=== PATIENT | male | born 1950 | race Caucasian/White ===

== ENCOUNTER → 2016-05-24 | Outpatient (CLI) | payer MEDICAID ==
--- NOTE | 2016-05-25 11:13 | EST ---
DATE OF SERVICE: 05/24/2016 AGE: 65Y SEX: M HT: 69" WT: 268 lbs. Protocol Deni: X Other: Stress Stage: II Dur. of Exercise: 6:00 *Heart Rate Blood Pressure *Rest: 76 Rest: 170/91 * *Max. Achieved: 141 Maximum BP: 213/68 85% PMHR: 133 100% PMHR: 156 *METS: 7.1 INDICATIONS: Chest pain. MEDICATIONS: Advair, Atenolol, lansoprazole, atorvastatin, Cialis, vitamins. STRESS DATA: Pretesting physical examination showed the heart rate of 76, pressure is 170/91 mmHg. Baseline EKG shows sinus mechanism. The patient exercised on the treadmill according to Deni protocol for a total of 6 minutes and achieved 7.1 METS. The max heart rate was 141, which is about 90% of maximum predicted heart rate. Maximum blood pressure was 213/68 mmHg. Clinically, the patient did not have any symptoms of chest pain or discomfort and the EKG did not show any significant ST or T-wave abnormalities consistent with ischemia. CONCLUSION: 1. Good exercise capacity. 2. Normal EKG in response to exercise. 3. Normal stress test for this patient.
== END | disposition home or self-care (01) ==
LOC: RADNMMAIN 10:36
PROVIDERS: ATTEND Family Medicine
DX: R06.02 Shortness of breath (principal); R07.9 Chest pain, unspecified
CPT/HCPCS: 93017

== ENCOUNTER → 2016-12-06 | Outpatient (CLI) | payer MEDICAID ==
--- NOTE | 2016-12-06 08:25 | CT ---
EXAMINATION TYPE: CT sinus wo con DATE OF EXAM: 12/06/2016 COMPARISON: NONE HISTORY: Chronic sinusitis CT DLP: 532.50 mGycm. Automated Exposure Control for Dose Reduction was Utilized. TECHNIQUE: CT scan of the sinuses is performed without contrast, axial images are obtained, coronal r eformatted images are also reviewed. FINDINGS: Lobular soft tissue is present in the bilateral maxillary sinuses. No air-fluid levels. The orbits show symmetric appearance. Ostiomeatal units are patent. Postop change noted in the lateral r ight orbit. Deviated nasal septum towards the left is noted. Slight irregularity to the inferior wall the right orbit is likely due to remote trauma. Old fracture suspected of the right zygoma. IMPRESSION: Findings may represent polyp disease.
== END | disposition home or self-care (01) ==
LOC: RADCTMAIN 07:48
PROVIDERS: ATTEND Family Medicine
DX: J32.4 Chronic pansinusitis (principal)
CPT/HCPCS: 70486

== ENCOUNTER → 2017-10-11 | Outpatient (CLI) | payer MEDICAID ==
--- NOTE | 2017-10-11 16:09 | XR ---
Right shoulder HISTORY: Right shoulder pain 3 views of the right shoulder Arthropathy is present at the acromioclavicular joint. Right lung apex as visualized is normal. Bone mineralization, alignment are maintained at the right shoulder. There is joint space loss at the franca ohumeral joint. Difficult to exclude a distal acromial spur. IMPRESSION: Correlate for possible impingement. Joint space loss is present in the right shoulder, sh oulder MRI may be of benefit.
== END | disposition home or self-care (01) ==
LOC: RADXRYALE 15:00
PROVIDERS: ATTEND Physician Assistant Medical
DX: M79.89 Other specified soft tissue disorders (principal)

== ENCOUNTER → 2018-05-30 | Outpatient (CLI) | payer MEDICAID ==
--- NOTE | 2018-05-30 22:27 | MR ---
EXAMINATION TYPE: MR shoulder RT wo con DATE OF EXAM: 05/30/2018 COMPARISON: HISTORY: Pain R shoulder TECHNIQUE: Multiplanar, multisequence imaging of the shoulder is performed without contrast. FINDINGS: Rotator Cuff: There is increased signal through the distal supraspinatus tendon. There appears to be approximately 1.1 cm of retraction. The distal portion of the tendon is just distal to the acromion. No supraspinatus muscle atrophy or retraction is evident. Remaining rotator cuff tendons appear intac t Acromioclavicular Joint: Hypertrophy. Some downward sloping is present which can contribute to imping ement syndrome. Glenohumeral Joint: Humerus aligns normally with the glenoid. Spurring is present compatible with ost eoarthritic degenerative change. There is thinning of the articular cartilage. Labrum: There is increased signal within the glenoid suspicious for superior SLAP lesion. Biceps Tendon: The long head of biceps is in normal location within bicipital groove. Small amount of fluid is within the bicipital groove. Bone marrow signal: No focal abnormal marrow signal is appreciated. Other: No additional significant abnormality is appreciated. IMPRESSION: 1. Supraspinatus tendon tear with approximately 1 cm of retraction. No muscle atrophy is evident. 2. Moderate tendinosis of the supraspinatus tendon. Mild joint effusion is present. 3. 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 4. Acromioclavicular joint hypertrophy. 5. Suspected glenoid labral tear.
== END | disposition home or self-care (01) ==
LOC: RADMRIMAIN 10:18
PROVIDERS: ATTEND Family Medicine
DX: M19.011 Primary osteoarthritis, right shoulder (principal); M75.101 Unspecified rotator cuff tear or rupture of right shoulder, not specified as traumatic

== ENCOUNTER → 2018-06-06 | Outpatient (CLI) | payer MEDICAID ==
--- NOTE | 2018-06-06 14:15 | EST ---
EXERCISE STRESS AGE: 67 SEX: M HT: 70" WT: 124 PROTOCOL: Deni Stress Test STAGE: 3 DURATION OF EXERCISE: 7:15 HEART RATE REST: 54 BLOOD PRESSURE REST: 129/93 MAXIMUM HEART RATE ACHIEVED: 135 MAXIMUM BLOOD PRESSURE: 206/74 85% MPHR: 131 100% MPHR: 154 METS: 8.5 INDICATIONS: Hypertension/chest pain. CLINICAL INFORMATION: STRESS DATA: Pretesting physical examination showed a heart rate of 54, pressure is 129/93 mmHg. Baseline EKG showed sinus mechanism. The patient exercised on the treadmill according to Deni protocol for a total of 7 minutes and achieved 8.5 METs. Max heart rate was 135, which is about 87% of maximum predicted heart rate. Maximum blood pressure was was 206/74 mmHg. Clinically, the patient did not have any symptoms of chest pain or discomfort. The EKG showed about [address]-segment depression. CONCLUSION: 1. Good exercise tolerance. 2. Abnormal EKG in response to exercise with evidence of [address]-segment depression at the peak of the exercise period. MMSHON / NANCIN: [id number] /
== END | disposition home or self-care (01) ==
LOC: RADNMMAIN 08:50
PROVIDERS: ATTEND Family Medicine
DX: R94.31 Abnormal electrocardiogram [ECG] [EKG] (principal); I10 Essential (primary) hypertension; R06.02 Shortness of breath; M25.511 Pain in right shoulder
CPT/HCPCS: 93017

== ENCOUNTER → 2018-07-19 | Outpatient (CLI) | payer MEDICAID ==
[2018-07-19 11:42] LABS: HCT 45.1 % (39.0-53.0); HGB 14.9 gm/dL (13.0-17.5); MCH 30.9 pg (25.0-35.0); MCHC 33.1 g/dL (31.0-37.0); MCV 93.1 fL (80.0-100.0); Mean Platelet Volume 8.5; Platelet Count 172 k/uL (150-450); RBC 4.84 m/uL (4.30-5.90); RDW 15.3 % (11.5-15.5); WBC 6.8 k/uL (3.8-10.6)
[2018-07-19 11:46] LABS: Anion Gap 9 mmol/L; Blood Urea Nitrogen 22 mg/dL (9-20); Carbon Dioxide 28 mmol/L (22-30); Chloride 104 mmol/L (98-107); Potassium 4.9 mmol/L (3.5-5.1); Sodium 141 mmol/L (137-145)
== END ==
LOC: LABPAT 10:38
PROVIDERS: ATTEND Internal Medicine Interventional Cardiology
DX: Z01.812 Encounter for preprocedural laboratory examination (principal); R07.9 Chest pain, unspecified; R94.39 Abnormal result of other cardiovascular function study
CPT/HCPCS: 36415; 80051; 82565; 84520; 85027

== ENCOUNTER 2018-07-22 10:54 | Day surgery (SDC) | payer MEDICAID, MEDICARE ==
[2018-07-19 11:58] VITALS: BMI 33.7
[~2018-07-22 10:54] MED LIST: ALPRAZolam 0.25 MG TAB PO PRN; ALPRAZolam 0.5 MG TAB PO PRN; ASPIRIN 325 MG TAB PO STA; ATORVASTATIN 80 MG TAB PO STA; NITROGLYCERIN SL TABS 0.4 MG TAB SUBLINGUAL PRN; SODIUM CHLORIDE 0.9% 1,000 ML in EMPTY BAG 1 BAG IV ONE
[2018-07-22 11:26] VITALS: TEMP 97.8
[2018-07-22] MEDS ORDERED: SODIUM CHLORIDE 0.9% 1,000 ML IV ONE (11:35)
[2018-07-22] MEDS ORDERED: MIDAZOLAM 2 MG/2 ML VIAL IV ONE (12:06)
[2018-07-22] MEDS ORDERED: LIDOCAINE 1% INJ 10MG/ML (20 ML MDV) SQ ONE (12:08)
[2018-07-22] MEDS ORDERED: VERAPAMIL SYRINGE (5 MG/10 ML) INTRAARTER ONE (12:10)
[2018-07-22] MEDS ORDERED: HEPARIN SODIUM 1,000 UN/ML (10ML VL) IV ONE (12:14)
[2018-07-22] MEDS ORDERED: IOPAMIDOL-370 100ML BTL INJ ONE (12:22)
[2018-07-22 13:18] VITALS: RESP 18
--- NOTE | 2018-07-22 14:21 | CC ---
CARDIAC CATHETERIZATION REPORT DATE OF SERVICE: 07/22/2018 PROCEDURE: Left heart catheterization, coronary angiography, left ventriculography. PERFORMED BY: Dr. Alicia Mancini. SEDATION: Moderate conscious sedation time was 19 minutes. CLINICAL INFORMATION: Mr. Luciana Gtz is a 67-year-old gentleman, a avid biker, quite active, had a positive stress test with inferolateral significant ST-segment depression and therefore he was advised coronary angiography. Risks, benefits, options and rationale were explained to the patient. PROCEDURE NOTE: Under local anesthesia and strict aseptic precautions, a 6-S[place] introducer was placed in the right radial artery. Using an Ultimate 1 catheter, I performed selective coronary angiography of both his coronary arteries. I then used a pigtail catheter to check LV pressures and performed LV-gram in 30 degree ACE projection. Patient tolerated the procedure well without complication. The sheath was taken out and a TR band applied as per protocol. The saturation of the fingers of the right hand was 94%. There was no significant disease. Results were discussed with the patient and family. CARDIAC CATHETERIZATION FINDINGS: The left ventricular end-diastolic pressure was about 8-10 mmHg without any gradient across the aortic valve. CORONARY ANGIOGRAPHY FINDINGS: RIGHT CORONARY ARTERY: This is a technically dominant vessel, has no significant disease and distally it bifurcates into a PDA and PLV, both of which supply a sizable amount of myocardium. This is a good caliber and good distribution right coronary artery which has no significant disease. LEFT MAIN CORONARY ARTERY: A short patent disease-free vessel that bifurcates into LAD and circumflex. There is also a ramus or high OM that comes off. Left main is free of significant disease. LEFT ANTERIOR DESCENDING CORONARY ARTERY: Good caliber vessel extends along the anterior wall. No significant disease. It bifurcates into LAD and diagonal in the midportion, gives off several septal branches, has minor irregularities, no significant disease in the entire LAD system which has a large diagonal branch. LEFT POSTERIOR CIRCUMFLEX CORONARY ARTERY: Technically, a nondominant vessel. Gives off a high first obtuse marginal which also looks like a ramus in some views. No significant disease and circumflex and ramus are both free of significant disease. LEFT VENTRICULOGRAM: This was performed in 30 degree ACE projection, revealed left ventricle is of normal size with good systolic function without segmental wall motion abnormality. Ejection fraction is 60% by visual inspection without mitral regurgitation. FINAL IMPRESSION: This patient has a right dominant system, no significant disease. Normal filling pressures. Ejection fraction 60% without mitral regurgitation. RECOMMENDATION: This patient does not need any intervention for his coronary disease. He has mild noncritical CAD. He can proceed with a rotator cuff surgery plan for July 24. There is no contraindication. Advised to discontinue aspirin and beta waldemar. He can continue the statin medication. I will see him in the office in one week or this Sunday depending on his schedule for his rotator cuff surgery. MMODL / IJN: [id number] /
[2018-07-22 15:35] VITALS: BP 141/68; PULSE 63
[2018-07-22] MEDS ORDERED: MONTELUKAST 10 MG TAB PO SCH (21:00)
[2018-07-22] MEDS ORDERED: NON-FORMULARY DRUG (Cetirizine Hcl [Zyrtec] 10 MG) PO SCH (21:00)
[2018-07-23] MEDS ORDERED: ATORVASTATIN 40 MG TAB PO SCH (09:00)
[2018-07-23] MEDS ORDERED: QNASL EA NOSTRIL SCH (09:00)
[2018-07-23] MEDS ORDERED: NON-FORMULARY DRUG (Lansoprazole [Lansoprazole] 30 MG) PO SCH (09:00)
[2018-07-23] MEDS ORDERED: NON-FORMULARY DRUG (Fluticasone/Salmeterol [Advair 500-50 Diskus] 1 PUFF) INHALATION SCH (09:00)
[2018-07-23] MEDS ORDERED: [UNRECOGNIZED DRUG - OTHER] PO SCH (09:00)
[2018-07-23] MEDS ORDERED: NON-FORMULARY DRUG (Cholecalciferol (Vitamin D3) [Vitamin D3] 2,000 UNIT) PO SCH (09:00)
== END 2018-07-22 17:55 | disposition home or self-care (01) ==
LOC: CATHCVL 10:54
PROVIDERS: ATTEND Internal Medicine Interventional Cardiology
DX: I25.10 Atherosclerotic heart disease of native coronary artery without angina pectoris (principal); R94.39 Abnormal result of other cardiovascular function study; R07.9 Chest pain, unspecified; E78.2 Mixed hyperlipidemia; I10 Essential (primary) hypertension; J44.9 Chronic obstructive pulmonary disease, unspecified; E66.9 Obesity, unspecified; Z68.33 Body mass index [BMI] 33.0-33.9, adult; G47.30 Sleep apnea, unspecified; Z99.89 Dependence on other enabling machines and devices; M10.9 Gout, unspecified; F10.10 Alcohol abuse, uncomplicated; Z82.49 Family history of ischemic heart disease and other diseases of the circulatory system; Z79.82 Long term (current) use of aspirin; Z79.51 Long term (current) use of inhaled steroids; Z79.899 Other long term (current) drug therapy; Z88.8 Allergy status to other drugs, medicaments and biological substances
CPT/HCPCS: 93458; C1769; C1894; J2250; J2001; J1644; Q9967

== ENCOUNTER 2018-07-24 12:31 | Day surgery (SDC) | payer MEDICAID, MEDICARE ==
[2018-07-23 09:36] VITALS: BMI 33.7
[~2018-07-24 12:31] MED LIST changes: -ALPRAZolam 0.25 MG TAB PO PRN; -ALPRAZolam 0.5 MG TAB PO PRN; -ASPIRIN 325 MG TAB PO STA; -ATORVASTATIN 80 MG TAB PO STA; +DEXAMETHASONE SOD PHOSPHATE 10 MG/ML 1 ML VIAL IV ONE; +HYDROmorphone 0.5 MG/0.5 ML SYRINGE IVP PRN; +LACTATED RINGERS 1,000 ML IV SCH; +LIDOCAINE 1% 20 ML VIAL (10MG/ML) FOR IV START INTRADERMA PRN; -NITROGLYCERIN SL TABS 0.4 MG TAB SUBLINGUAL PRN; +ONDANSETRON 4 MG/2 ML VIAL IVP ONE; +SCOPOLAMINE 1.5MG/72HR PATCH TRANSDERM ONE; -SODIUM CHLORIDE 0.9% 1,000 ML in EMPTY BAG 1 BAG IV ONE; +ceFAZolin IN SWFI 2 GM/20 ML SYRINGE IVP ONE
[2018-07-24] MEDS ORDERED: MIDAZOLAM 2 MG/2 ML VIAL IV ONE (13:35)
[2018-07-24] MEDS ORDERED: fentaNYL (PF) 50 MCG/ML 2 ML AMP IV ONE (13:37)
[2018-07-24] MEDS ORDERED: ROPIVACAINE 5 MG/ML 30 ML VIAL ONE (14:14)
[2018-07-24] MEDS ORDERED: LIDOCAINE 1% INJ 10MG/ML (20 ML MDV) ONE (14:14)
[2018-07-24] MEDS ORDERED: ROCURONIUM BROMIDE 10 MG/ML 10 ML VIAL IV ONE (14:14)
[2018-07-24] MEDS ORDERED: NEOSTIGMINE 1 MG/ML 10 ML VIAL ONE (14:14)
[2018-07-24] MEDS ORDERED: fentaNYL (PF) 50 MCG/ML 2 ML AMP ONE (14:14)
[2018-07-24] MEDS ORDERED: ePHEDrine SULFATE/0.9% NACL/PF 50 MG/5 ML SYRINGE IV ONE (14:14)
[2018-07-24] MEDS ORDERED: DEXAMETHASONE SOD PHOSPHATE 4 MG/ML 1 ML VIAL ONE (14:14)
[2018-07-24] MEDS ORDERED: GLYCOPYRROLATE 0.2 MG/ML 2 ML VIAL ONE (14:14)
[2018-07-24] MEDS ORDERED: MIDAZOLAM 2 MG/2 ML VIAL ONE (14:14)
[2018-07-24] MEDS ORDERED: PROPOFOL 10 MG/ML 20 ML VIAL IV ONE (14:14)
--- NOTE | 2018-07-24 14:45 | P.ONQ ---
Anesthesiology Proc Note - PNB - Peripheral Nerve Block Performed Right Interscalene Single Time Out Performed: Yes ([id number]) Procedure Start Time: 13:32 Procedure Stop Time: 13:35 Indication: Acute Post-Operative Pain, Dx/Pain Location (Right Shoulder Pain), Requested by physician Sedation Type: Sedate with meaningful contact maintained Preparation: Sterile Prep Position: Supine Catheter: None Needle Types: On-Q Needle Size: 50mm (2") Technique: Ultrasound Injectate: Other (see comment) (15 ml 0.25% ropivacaine and 4mg Dexamethasone) Adjunct: Epinephrine (see comment for dilution ratio) Blood Aspirated: No Pain Paresthesia on Injection Noted: No Resistance on Injection: Normal Events: Uneventful and Well Tolerated
[2018-07-24] MEDS ORDERED: BUPIVACAINE-EPI 0.5%-1:200,000 10 ML VIAL INTRAARTIC ONE (14:56)
[2018-07-24 15:56] VITALS: TEMP 97.2
[2018-07-24 16:07] VITALS: RESP 16
[2018-07-24 16:48] VITALS: BP 133/78; PULSE 64
--- NOTE | 2018-07-24 17:29 | OP ---
OPERATIVE REPORT DATE OF PROCEDURE: 07/24/2018 SURGEON: Duong Altman MD TAPER [employer] LAYOUT: Reggie SHEA PREOPERATIVE DIAGNOSES: 1. Right shoulder rotator cuff tear. 2. Right shoulder superior labral tear. 3. Right shoulder subacromial impingement. 4. Right shoulder chondromalacia, glenohumeral joint. POSTOPERATIVE DIAGNOSES: 1. Right shoulder type 4 labral tear, tearing of the anterior, superior, posterior and inferior labrum. The biceps tendon anchor was also grossly displaced. 2. Right shoulder grade 3-4 chondromalacia of the glenoid. 3. Right shoulder grade 2-3 chondromalacia of the humeral head. 4. Right shoulder subacromial impingement. 5. Right shoulder dense subacromial adhesions. PROCEDURES PERFORMED: 1. Right shoulder arthroscopic biceps tenotomy. 2. Right shoulder arthroscopic anterior, superior, posterior and inferior labral debridement. 3. Right shoulder arthroscopic acromioplasty. 4. Right shoulder arthroscopic lysis of adhesions. ANESTHESIA: General endotracheal. ESTIMATED BLOOD LOSS: Minimal. TOURNIQUETS: None. DRAINS: None. COMPLICATIONS: None apparent. DISPOSITION: Post-Anesthesia Care Unit. EXAMINATION UNDER ANESTHESIA OF THE RIGHT SHOULDER: Elevation 160 degrees, external rotation at the side of 40 degrees, external rotation at 90 degrees with was 90 degrees, internal rotation at 90 degrees with abduction of 60 degrees, sulcus less than 1 cm, anterior translation glenoid face, posterior translation glenoid face. ARTHROSCOPIC FINDINGS, RIGHT SHOULDER: 1. Superior labrum: Type 4 superior labral tear tearing anterior, posterior, superior and inferior labrum with grossly unstable biceps anchor. There was also some partial tearing of the intra-articular portion of the long head of the biceps tendon. 2. Anterior inferior labrum: Displaced tearing of the anterior inferior labrum. 3. Posterior labrum: Tearing of the entire posterior labrum. 4. Humeral head cartilage was grade 2-3 change. 5. Rotator cuff: No tearing of the rotator cuff. The rotator cuff was intact on both the articular and bursal surfaces. 6. Glenoid face cartilage: There was mostly grade 3 change with very small punctate areas of grade 4 change. 7. Subacromial space: Significant fraying of the undersurface of the coracoacromial ligament with a type 2 anterolateral acromial spur. There were also very dense subacromial adhesions and bursitis. INDICATIONS: Mr. Gtz is a very pleasant 67-year-old male with right shoulder pain. He has noted weakness as well as significant pain in his shoulder. He has been through a fairly significant course of nonoperative treatment up to this point. Physical examination and MRI reveal tearing of the glenoid labrum as well as a suggestion of a small rotator cuff tear. There was also noted very mild early chondromalacia of the glenohumeral joint. At this point in time, he feels that he has failed nonoperative treatment and would like to proceed with operative intervention. A long discussion was held with the patient in regard to his treatment options. The risks of the procedure were all discussed with him in detail. These risks included but were not limited to risk of infection, nerve damage, bleeding, pain, and a small risk of deep vein thrombosis which could lead to fatal pulmonary embolism. Further risks included lack of healing of the rotator cuff and the possibility for a biceps contour change with the biceps tenotomy. The patient understands the operation as well as the fact that there is no guarantee of improvement of his symptoms. Appropriate informed consent was obtained. DESCRIPTION OF THE PROCEDURE: The patient was identified in the preoperative holding area. Surgical site was marked by both the patient and myself. He was given 2 grams of Ancef IV for prophylactic purposes. He was then transported to the operative suite. He was placed supine on the operating room table. The patient was then intubated endotracheally and received general anesthesia throughout the operative procedure. Examination under anesthesia was then performed and the findings were noted as above. The patient was then placed into the beach chair position and well padded in preparation for surgery. Great care was taken to ensure the cervical spine was in neutral alignment, well padded and maintained that way throughout the operative procedure. Great care was also taken to ensure that his legs were appropriately padded as well. The patient's right upper extremity was then prepped and draped in the usual sterile fashion. Standard surgical pause was undertaken to ensure that appropriate preoperative antibiotics had been given and that we were operating on the correct site. All staff in the room were in agreement and we proceeded. The acromion as well as the AC joint and coracoid were marked with a surgical pen. The skin of the anticipated port sites were also marked with a surgical pen. The skin of the anticipated port sites were then injected with 0.25% Marcaine with epinephrine. I then proceeded to make a posterior portal. A 30-degree arthroscope was introduced in the glenohumeral joint through this portal. The arthroscopic pump pressure was set at 40 mmHg and maintained at that level throughout the entire case. Next, utilizing an 18-gauge spinal needle for topical localized placement, the anterior superior portal was made. This was made just underneath the biceps tendon, high in the rotator interval. A small 5.75 mm cannula was then placed. The outflow was then done through this cannula. Diagnostic arthroscopy of the shoulder was then performed, with the findings as noted above. Great care was taken to probe the superior labral complex as well as the biceps anchor. The biceps anchor was not firmly attached. There was significant displacement of the of the biceps anchor. He had very significant macerated tearing of the entire glenoid labrum. There was a large flap in the posterior labrum. This extended superiorly, anteriorly, posteriorly and inferiorly. The intra-articular portion of the long head of the biceps tendon did have partial tearing as well. At this point I proceeded with a biceps tenotomy. The biceps was tenotomized at its attachment on the supraglenoid tubercle. This was done utilizing the ArthroCare wand. I then proceeded to debride the torn loose tissue of the superior labrum. This was debrided anteriorly, superiorly, posteriorly and inferiorly back to stable tissue. I then inspected the rotator cuff from intra-articular. There was very mild fraying of the articular surface of the rotator cuff. There was no evidence of any full-thickness tearing. The fraying was just very gently debrided utilizing a synovial shaver. At this point in time, no further work was deemed necessary from intra-articular. The arthroscope was removed from the glenohumeral joint utilizing the same posterior skin incision that was placed in the subacromial space. Next, utilizing an 18-gauge spinal needle for topical localized placement, a lateral portal was made under direct visualization. There were very dense subacromial adhesions. A subacromial bursectomy was then performed utilizing the synovial shaver as well as the ArthroCare wand. The adhesions were lysed as well. There was significant fraying of the undersurface of the coracoacromial ligament. This was then taken down utilizing the ArthroCare wand. This exposed an underlying type 2 anterolateral acromial spur. I then proceeded with an acromioplasty. Utilizing the synovial shaver in a poli-type fashion, the acromioplasty was completed. When the acromioplasty was completed, the arthroscope was placed in the lateral portal and the shaver placed posteriorly to ensure there it was adequately coplanar with the posterior aspect of the acromion. I then proceeded to evaluate the rotator cuff. The arthroscope was placed in the lateral portal. The shoulder was then taken through a full range of motion. The bursal surface of the rotator cuff was pristine. There were very healthy blood vessels noted on the bursal surface of the rotator cuff. There was no evidence of tearing at all. Again the shoulder was taken through internal and external rotation and a full range of motion with the arthroscope visualizing the entirety of the cuff. There was no evidence of any tearing. At this point in time, no further work was deemed necessary. The shoulder was thoroughly irrigated and then drained with an outflow cannula. The arthroscopic equipment was removed from the shoulder. The arthroscopic portals were then closed with 3-0 nylon interrupted suture. Sterile compressive dressing was then applied. The patient's right upper extremity was placed into a standard sling. All sponge and needle counts were deemed correct prior to closure. The patient tolerated procedure without apparent complications. He was then transferred to the recovery room in stable condition. MILANODL / IJN: [id number] /
== END 2018-07-24 17:17 | disposition home or self-care (01) ==
LOC: OR 12:31
PROVIDERS: ATTEND Orthopaedic Surgery Sports Medicine
DX: S43.431A Superior glenoid labrum lesion of right shoulder, initial encounter (principal); S46.111A Strain of muscle, fascia and tendon of long head of biceps, right arm, initial encounter; S46.011A Strain of muscle(s) and tendon(s) of the rotator cuff of right shoulder, initial encounter; S46.811A Strain of other muscles, fascia and tendons at shoulder and upper arm level, right arm, initial encounter; M94.211 Chondromalacia, right shoulder; M66.811 Spontaneous rupture of other tendons, right shoulder; M19.011 Primary osteoarthritis, right shoulder; M75.41 Impingement syndrome of right shoulder; M75.01 Adhesive capsulitis of right shoulder; I10 Essential (primary) hypertension; E78.5 Hyperlipidemia, unspecified; J45.30 Mild persistent asthma, uncomplicated; K21.9 Gastro-esophageal reflux disease without esophagitis; G47.33 Obstructive sleep apnea (adult) (pediatric); Z82.49 Family history of ischemic heart disease and other diseases of the circulatory system; Z88.1 Allergy status to other antibiotic agents; Z99.89 Dependence on other enabling machines and devices; Z79.899 Other long term (current) drug therapy; Z98.61 Coronary angioplasty status; X58.XXXA Exposure to other specified factors, initial encounter
CPT/HCPCS: 29823; 29826; 64415; J2250; J1100 ×2; J2710; J2405; J2001; J3010; J2795; J2704; J0690

== ENCOUNTER 2019-02-05 07:02 | Day surgery (SDC) | payer MEDICAID ==
[2019-02-03 10:45] VITALS: BMI 33.0
[~2019-02-05 07:02] MED LIST changes: -DEXAMETHASONE SOD PHOSPHATE 10 MG/ML 1 ML VIAL IV ONE; -HYDROmorphone 0.5 MG/0.5 ML SYRINGE IVP PRN; -ONDANSETRON 4 MG/2 ML VIAL IVP ONE; -SCOPOLAMINE 1.5MG/72HR PATCH TRANSDERM ONE; -ceFAZolin IN SWFI 2 GM/20 ML SYRINGE IVP ONE
[2019-02-05 07:23] VITALS: TEMP 97.5
[2019-02-05] MEDS ORDERED: PROPOFOL 10 MG/ML 20 ML VIAL IV ONE (07:53)
--- NOTE | 2019-02-05 08:03 | P.GSHP ---
History of Present Illness H&P Date: 02/05/19 Chief Complaint: Colon cancer screening Patient today for colonoscopy. Last colonoscopy 5 years ago. History of previous colon polyps. Patient had a previous laparoscopic sigmoid resection for diverticulitis. Lately has had 4-6 bowel movement per day. Occasional episodes of mild abdominal discomfort. Past Medical History Past Medical History: COPD, GERD/Reflux, Hyperlipidemia, Hypertension, Osteoarthritis (OA), Sleep Apnea/CPAP/BIPAP Additional Past Medical History / Comment(s): GOUT. SINUS PROBLEMS. DIVERTICULITIS, uses CPAP History of Any Multi-Drug Resistant Organisms: None Reported Past Surgical History: Bowel Resection, Heart Catheterization, Orthopedic Surgery Additional Past Surgical History / Comment(s): cardiac cath , RIGHT SHOULDER SURGERY Past Anesthesia/Blood Transfusion Reactions: No Reported Reaction Smoking Status: Never smoker - Past Family History Father Family Medical History: Pulmonary Embolus Mother Family Medical History: Cancer Additional Family Medical History / Comment(s): BREAST CANCER Medications and Allergies Home Medications Medication Instructions Recorded Confirmed Type Atorvastatin [Lipitor] 40 mg PO QAM 07/18/18 02/05/19 History Beclomethasone Dipropionate 1 spray EA NOSTRIL DAILY #0 07/18/18 02/03/19 History [Beconase Aq] Cetirizine HCl [Zyrtec] 10 mg PO HS 07/18/18 02/05/19 History Cholecalciferol (Vitamin D3) 2,000 unit PO QAM 07/18/18 02/03/19 History [Vitamin D3] Fluticasone/Salmeterol [Advair 1 puff INHALATION QAM 07/18/18 02/03/19 History 500-50 Diskus] Lansoprazole 30 mg PO QAM 07/18/18 02/05/19 History Montelukast [Singulair] 10 mg PO HS 07/18/18 02/05/19 History Atenolol [Tenormin] 25 mg PO DAILY 02/03/19 02/05/19 History Tadalafil [Cialis] 5 mg PO DAILY PRN 02/03/19 02/03/19 History Allergies Allergy/AdvReac Type Severity Reaction Status Date / Time cephalexin [From Keflex] Allergy Rash/Hives Verified 02/05/19 07:30 Surgical - Exam Vital Signs Temp Pulse Resp BP Pulse Ox 97.5 F L 73 17 143/71 96 02/05/19 07:16 02/05/19 07:16 02/05/19 07:16 02/05/19 07:16 02/05/19 07:16 Physical exam: General: Well-developed, well-nourished HEENT: Normocephalic, sclerae nonicteric Abdomen: Nontender, nondistended Extremities: No edema Neuro: Alert and oriented Assessment and Plan (1) Colon cancer screening Narrative/Plan: Will proceed with colonoscopy at this time. Current Visit: Yes Status: Acute Code(s): Z12.11 - ENCOUNTER FOR SCREENING FOR MALIGNANT NEOPLASM OF COLON SNOMED Code(s): 001197763
--- NOTE | 2019-02-05 08:26 | P.PCN ---
Date of Procedure: 02/05/19 Procedure(s) Performed: PREOPERATIVE DIAGNOSIS: Colon cancer screening, history of adenomatous polyps POSTOPERATIVE DIAGNOSIS: Cecal polyp 3, diverticulosis PROCEDURE: Colonoscopy with snare polypectomy ANESTHESIA: MAC SURGEON: Edgar Corcoran M.D. SPECIMENS: Polyps ENDOSCOPIC PROCEDURE: The patient was placed on the endoscopy table in the left decubitus position. The Olympus colonoscope was inserted into the anus and passed under direct visualization to the base of the cecum. The appendiceal orifice was visualized. From that point the scope was slowly withdrawn inspecting all surfaces carefully. There were a total of 3 polyps in the cecum and ascending colon. The largest polyp was tucked behind a fold. This measured approximately 1.5 cm in size. This was removed in a piecemeal manner using the snare with cautery technique. 2 adjacent smaller polyps were also seen in that vicinity and removed. These were all sent together. The remainder of the ascending transverse descending and rectum appeared normal. The patient's previous colorectal anastomosis was widely patent. A silk stitch was seen. Mild scattered diverticulosis was seen primarily in the right side of the colon. Digital rectal examination was normal. The patient was taken to the recovery room in stable condition per anesthesia guidelines. RECOMMENDATIONS: Await biopsy results. Will require short-term follow-up in 6- 12 months.
[2019-02-05 08:29] VITALS: BP 123/77
[2019-02-05 08:44] VITALS: PULSE 90; RESP 18
== END 2019-02-05 08:56 | disposition home or self-care (01) ==
LOC: ORWHC2ENDO 07:02
PROVIDERS: ATTEND Surgery
DX: Z12.11 Encounter for screening for malignant neoplasm of colon (principal); D12.0 Benign neoplasm of cecum; K57.90 Diverticulosis of intestine, part unspecified, without perforation or abscess without bleeding; J44.9 Chronic obstructive pulmonary disease, unspecified; K21.9 Gastro-esophageal reflux disease without esophagitis; J34.9 Unspecified disorder of nose and nasal sinuses; E78.5 Hyperlipidemia, unspecified; I10 Essential (primary) hypertension; M19.90 Unspecified osteoarthritis, unspecified site; G47.33 Obstructive sleep apnea (adult) (pediatric); M10.9 Gout, unspecified; E66.9 Obesity, unspecified; Z68.33 Body mass index [BMI] 33.0-33.9, adult; Z90.49 Acquired absence of other specified parts of digestive tract; Z86.010 Personal history of colon polyps; Z87.19 Personal history of other diseases of the digestive system; Z99.89 Dependence on other enabling machines and devices; Z98.890 Other specified postprocedural states; Z82.49 Family history of ischemic heart disease and other diseases of the circulatory system; Z80.3 Family history of malignant neoplasm of breast; Z79.899 Other long term (current) drug therapy; Z79.51 Long term (current) use of inhaled steroids; Z88.1 Allergy status to other antibiotic agents
CPT/HCPCS: 88305; 45385; J2704

== ENCOUNTER → 2019-09-09 | Outpatient (CLI) | payer MEDICAID | END | disposition home or self-care (01) | LOC: LABWHC1 14:44 | PROVIDERS: ATTEND Surgery | DX: Z11.59 Encounter for screening for other viral diseases (principal) | CPT/HCPCS: 87635 ==

== ENCOUNTER 2019-09-12 07:38 | Day surgery (SDC) | payer MEDICAID ==
[2019-09-10 09:36] VITALS: BMI 36.9
[~2019-09-12 07:38] MED LIST changes: -LIDOCAINE 1% 20 ML VIAL (10MG/ML) FOR IV START INTRADERMA PRN
[2019-09-12 08:16] VITALS: RESP 16; TEMP 96.8
[2019-09-12] MEDS ORDERED: LIDOCAINE 1% (10MG/ML) FOR IV START INTRADERMA ONE (08:28)
[2019-09-12] MEDS ORDERED: MIDAZOLAM 2 MG/2 ML VIAL ONE (08:42)
[2019-09-12] MEDS ORDERED: fentaNYL (PF) 50 MCG/ML 2 ML AMP ONE (08:42)
[2019-09-12] MEDS ORDERED: PROPOFOL 10 MG/ML 20 ML VIAL IV ONE (08:42)
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
--- NOTE | 2019-09-12 09:04 | P.PCN ---
Date of Procedure: 09/12/19 Procedure(s) Performed: PREOPERATIVE DIAGNOSIS: History of colon polyps POSTOPERATIVE DIAGNOSIS: Cecal polyp, diverticulosis PROCEDURE: Colonoscopy with snare polypectomy ANESTHESIA: MAC SURGEON: Edgar Corcoran M.D. SPECIMENS: Cecal polyp ENDOSCOPIC PROCEDURE: The patient was placed on the endoscopy table in the left decubitus position. The Olympus colonoscope was inserted into the anus and passed under direct visualization to the base of the cecum. The appendiceal orifice was visualized. From that point the scope was slowly withdrawn inspecting all surfaces carefully. Just distal to the ileocecal valve was a small less than 1 cm sessile polyp. This was removed using the snare with cautery technique. This was again present along a fold. This time we felt more comfortable that the entire polyp was removed. The base was fulgurated with electrocautery. The remainder of the ascending transverse descending and rectum appeared normal. The anastomosis was widely patent. There was mild diverticulosis. Digital rectal examination was normal. The patient was taken to the recovery room in stable condition per anesthesia guidelines. RECOMMENDATIONS: Await biopsy results. Recommend follow-up colonoscopy 2 years.
[2019-09-12 09:07] VITALS: BP 124/79; PULSE 64
== END 2019-09-12 09:40 | disposition home or self-care (01) ==
LOC: ORWHC2ENDO 07:38
PROVIDERS: ATTEND Surgery
DX: Z12.11 Encounter for screening for malignant neoplasm of colon (principal); D12.0 Benign neoplasm of cecum; K57.30 Diverticulosis of large intestine without perforation or abscess without bleeding; K21.9 Gastro-esophageal reflux disease without esophagitis; Z90.49 Acquired absence of other specified parts of digestive tract; Z86.010 Personal history of colon polyps; J44.9 Chronic obstructive pulmonary disease, unspecified; E78.5 Hyperlipidemia, unspecified; I10 Essential (primary) hypertension; E66.01 Morbid (severe) obesity due to excess calories; Z68.37 Body mass index [BMI] 37.0-37.9, adult; M19.90 Unspecified osteoarthritis, unspecified site; Z87.01 Personal history of pneumonia (recurrent); G47.30 Sleep apnea, unspecified; Z99.89 Dependence on other enabling machines and devices; Z85.828 Personal history of other malignant neoplasm of skin; Z87.820 Personal history of traumatic brain injury; M10.9 Gout, unspecified; Z82.49 Family history of ischemic heart disease and other diseases of the circulatory system; Z80.3 Family history of malignant neoplasm of breast; Z80.9 Family history of malignant neoplasm, unspecified; Z79.51 Long term (current) use of inhaled steroids; Z79.899 Other long term (current) drug therapy; Z88.1 Allergy status to other antibiotic agents
CPT/HCPCS: 88305; 45385; J2250; J3010; J2704

== ENCOUNTER 2023-04-08 07:32 | Emergency (ER) | payer MEDICARE ==
[2023-04-08 07:56] VITALS: RESP 20
--- NOTE | 2023-04-08 07:58 | ED ---
General Adult HPI - General Chief complaint: Upper Respiratory Infection Stated complaint: Pneumonia Time Seen by Provider: 04/08/23 07:35 Source: patient, RN notes reviewed, old records reviewed Mode of arrival: ambulatory Limitations: no limitations - History of Present Illness Initial comments: This is a 72-year-old male who states she's been coughing and coughing up sputum for about a week. Patient states he short of breath when he has coughing fits. Patient sitting still or walk on house without coughing he has no shortness of breath. Patient denies any palpitations. Patient denies any chest pain. Patient states he had a low-grade fever this morning 100.0. Patient denies any abdominal pain patient denies nausea vomiting. Patient denies any headache patient denies lightheadedness or dizziness. - Related Data Home Medications Medication Instructions Recorded Confirmed Cetirizine HCl [Zyrtec] 10 mg PO DAILY 07/18/18 09/12/19 Cholecalciferol (Vitamin D3) 2,000 unit PO QAM 07/18/18 09/12/19 [Vitamin D3] Fluticasone Propion/Salmeterol 1 puff INHALATION QAM 07/18/18 09/12/19 [Advair 500-50 Diskus] Montelukast [Singulair] 10 mg PO DAILY 07/18/18 09/12/19 atenoloL [Tenormin] 25 mg PO DAILY 02/03/19 09/12/19 tadalafiL [Cialis] 5 mg PO DAILY PRN 02/03/19 09/12/19 Atorvastatin [Lipitor] 80 mg PO DAILY 09/10/19 09/12/19 Beclomethasone Dipropionate [Qnasl] 2 spray EA NOSTRIL DAILY 09/10/19 09/12/19 Pantoprazole [Protonix] 40 mg PO DAILY 09/10/19 09/12/19 Allergies Allergy/AdvReac Type Severity Reaction Status Date / Time cephalexin [From Keflex] Allergy Rash/Hives Verified 04/08/23 07:36 Review of Systems ROS Statement: Those systems with pertinent positive or pertinent negative responses have been documented in the HPI. ROS Other: All systems not noted in ROS Statement are negative. Past Medical History Past Medical History: COPD, GERD/Reflux, Hyperlipidemia, Hypertension, Osteoarthritis (OA), Sleep Apnea/CPAP/BIPAP Additional Past Medical History / Comment(s): GOUT. SINUS PROBLEMS. DIVERTICULITIS, uses CPAP History of Any Multi-Drug Resistant Organisms: None Reported Past Surgical History: Bowel Resection, Heart Catheterization, Orthopedic Surgery Additional Past Surgical History / Comment(s): cardiac cath , RIGHT SHOULDER SURGERY Past Anesthesia/Blood Transfusion Reactions: No Reported Reaction Past Psychological History: No Psychological Hx Reported Smoking Status: Never smoker Past Alcohol Use History: Occasional Past Drug Use History: None Reported - Past Family History Father Family Medical History: Pulmonary Embolus Mother Family Medical History: Cancer Additional Family Medical History / Comment(s): BREAST CANCER Brother(s) Family Medical History: Cancer General Exam - General Exam Comments Initial Comments: GENERAL: Patient is well-developed and well-nourished. Patient is nontoxic and well- hydrated and is in mild distress. ENT: Neck is soft and supple. No significant lymphadenopathy is noted. Oropharynx is clear. Moist mucous membranes. Neck has full range of motion without eliciting any pain. EYES: The sclera were anicteric and conjunctiva were pink and moist. Extraocular movements were intact and pupils were equal round and reactive to light. Eyelids were unremarkable. PULMONARY: Unlabored respirations. Good breath sounds bilaterally. No audible rales rhonchi or wheezing was noted. CARDIOVASCULAR: There is a regular rate and rhythm without any murmurs gallops or rubs. ABDOMEN: Soft and nontender with normal bowel sounds. SKIN: Skin is clear with no lesions or rashes and otherwise unremarkable. NEUROLOGIC: Patient is alert and oriented x3. Cranial nerves II through XII are grossly intact. Motor and sensory are also intact. Normal speech, volume and content. Symmetrical smile. MUSCULOSKELETAL: Normal extremities with adequate strength and full range of motion. LYMPHATICS: No significant lymphadenopathy is noted PSYCHIATRIC: Normal psychiatric evaluation. Limitations: no limitations Course Vital Signs 04/08/23 04/08/23 07:33 07:41 Temperature 98.9 F Pulse Rate 73 Respiratory 20 20 Rate Blood Pressure 143/79 O2 Sat by Pulse 96 Oximetry Medical Decision Making - Medical Decision Making Was pt. sent in by a medical professional or institution (, PA, CENTER MANAGER, urgent care, hospital, or snf...) When possible be specific @ -No Did you speak to anyone other than the patient for history (EMS, parent, family, police, friend...)? What history was obtained from this source @ -No Did you review nursing and triage notes (agree or disagree)? Why? @ -I reviewed and agree with nursing and triage notes Were old charts reviewed (outside hosp., previous admission, EMS record, old EKG, old radiological studies, urgent care reports/EKG's, snf records)? Report findings @ -No old charts were reviewed Differential Diagnosis (chest pain, altered mental status, abdominal pain women, abdominal pain men, vaginal bleeding, weakness, fever, dyspnea, syncope, headache, dizziness, GI bleed, back pain, seizure, CVA, palpatations, mental health, musculoskeletal)? @ -Differential Dyspnea: Coronary syndrome, arrhythmia, tamponade, asthma, COPD, pulmonary embolism, pneumonia, pneumothorax, pulmonary effusion, anaphylaxis, diabetic ketoacidosis, flailed chest, pulmonary contusion, diaphragmatic rupture, anemia, neuromuscular, this is not meant to be an all-inclusive list. EKG interpreted by me (3pts min.). @ -As above X-rays interpreted by me (1pt min.). @ -Chest x-ray shows no acute abnormality CT interpreted by me (1pt min.). @ -None done U/S interpreted by me (1pt. min.). @ -None done What testing was considered but not performed or refused? (CT, X-rays, U/S, labs)? Why? @ -None What meds were considered but not given or refused? Why? @ -None Did you discuss the management of the patient with other professionals (professionals i.e. , PA, CENTER MANAGER, lab, RT, psych nurse, bilingual social worker, divorce lawyer, t eacher, signals officer, case consultant)? Give summary @ -No Was smoking cessation discussed for >3mins.? @ -No Was critical care preformed (if so, how long)? @ -No Were there social determinants of health that impacted care today? How? (Homelessness, low income, unemployed, alcoholism, drug addiction, transportation, low edu. Level, literacy, decrease access to med. care, nursing home, rehab)? @ -No Was there de-escalation of care discussed even if they declined (Discuss DNR or withdrawal of care, Hospice)? DNR status @ -No What co-morbidities impacted this encounter? (DM, HTN, Smoking, COPD, CAD, Cancer, CVA, ARF, Chemo, Hep., AIDS, mental health diagnosis, sleep apnea, morbid obesity)? @ -None Was patient admitted / discharged? Hospital course, mention meds given and ro nome, prescriptions, significant lab abnormalities, going to OR and other pertinent info. @ -Patient already has breathing treatments at home and take an antihistamine has been taking Coricidin home. Patient's test came up positive RSV. Undiagnosed new problem with uncertain prognosis? @ -No Drug Therapy requiring intensive monitoring for toxicity (Heparin, Nitro, Insulin, Cardizem)? @ -No Were any procedures done? @ -No Diagnosis/symptom? @ -RSV Acute, or Chronic, or Acute on Chronic? @ -Acute Uncomplicated (without systemic symptoms) or Complicated (systemic symptoms)? @ -Complicated Side effects of treatment? @ -No Exacerbation, Progression, or Severe Exacerbation? @ -No Poses a threat to life or bodily function? How? (Chest pain, [place], NH, pneumonia, PE, COPD, DKA, ARF, appy, cholecystitis, CVA, Diverticulitis, Homicidal, Suicidal, threat to staff... and all critical care pts) @ -No - Lab Data Lab Results 04/08/23 Range/Units 08:00 Influenza Type A (PCR) Not Detected (Not Detectd) Influenza Type B (PCR) Not Detected (Not Detectd) RSV (PCR) Detected A (Not Detectd) SARS-CoV-2 (PCR) Not Detected (Not Detectd) Disposition Clinical Impression: RSV infection Disposition: HOME SELF-CARE Instructions (If sedation given, give patient instructions): Respiratory Syncytial Virus (ED) Is patient prescribed a controlled substance at d/c from ED?: No Referrals: Toney Pearson DO [Primary Care Provider] - 1-2 days Time of Disposition: 09:17
--- NOTE | 2023-04-08 08:19 | XR ---
EXAMINATION TYPE: XR chest 2V DATE OF EXAM: 04/08/2023 8:08 AM CLINICAL INDICATION:Male, 72 years old with history of Difficulty breathing ; COMPARISON: Chest radiographs from 12/26/2012. TECHNIQUE: XR chest 2V Frontal and lateral views of the chest. FINDINGS: Lungs/Pleura: There is no evidence of pleural effusion, focal consolidation, or pneumothorax. Pulmonary vascularity: Unremarkable. Heart/mediastinum: Cardiomediastinal silhouette is unremarkable. Musculoskeletal: No acute osseous pathology. IMPRESSION: No acute cardiopulmonary disease/process.
[2023-04-08 09:30] VITALS: BP 118/70; PULSE 63; TEMP 98.8
== END 2023-04-08 09:24 | disposition home or self-care (01) ==
LOC: EC 07:32
DX: J18.9 Pneumonia, unspecified organism (principal); B97.4 Respiratory syncytial virus as the cause of diseases classified elsewhere; I10 Essential (primary) hypertension; J44.0 Chronic obstructive pulmonary disease with (acute) lower respiratory infection; E78.5 Hyperlipidemia, unspecified; G47.30 Sleep apnea, unspecified; K21.9 Gastro-esophageal reflux disease without esophagitis; M19.90 Unspecified osteoarthritis, unspecified site; Z88.1 Allergy status to other antibiotic agents; Z79.51 Long term (current) use of inhaled steroids; Z79.899 Other long term (current) drug therapy; Z20.822 Contact with and (suspected) exposure to COVID-19
CPT/HCPCS: 71046; 87636; 99283

== ENCOUNTER → 2023-10-09 | Outpatient (CLI) | payer MEDICARE ==
--- NOTE | 2023-10-09 13:22 | CT ---
EXAMINATION TYPE: CT chest wo con DATE OF EXAM: 10/09/2023 COMPARISON: None HISTORY: ILD CT DLP: 1909 mGycm High-resolution noncontrast CT of the chest was performed with the patient in the prone and supine po sitions. Lung and mediastinal window settings are submitted. The lungs appear to be well-aerated. Chronic-appearing elevation right hemidiaphragm with right basi lar parenchymal scarring. I do not see evidence for fibrotic change. There is no evidence for bronc hiectasis, groundglass infiltrate, nodule or mass. No pleural effusion is identified. I do not see evidence for hilar or mediastinal mass or adenopathy. IMPRESSION: 1. Chronic-appearing elevation right hemidiaphragm with right basilar parenchymal scarring.
== END | disposition home or self-care (01) ==
LOC: RADCTMAIN 12:41
PROVIDERS: ATTEND Internal Medicine Critical Care Medicine
DX: J84.9 Interstitial pulmonary disease, unspecified (principal); L90.5 Scar conditions and fibrosis of skin
CPT/HCPCS: 71250

== ENCOUNTER → 2023-11-07 | Outpatient (CLI) | payer MEDICARE ==
--- NOTE | 2023-11-07 15:02 | FL ---
EXAMINATION TYPE: FL sniff test without CXR DATE OF EXAM: 11/07/2023 COMPARISON: NONE HISTORY: J98.6 DISORDERS OF DIAPHRAGM TECHNIQUE: Fluoroscopy. FINDINGS: Radiologic sniff test was performed. There is elevation of the right hemidiaphragm. There i s mild suggestive paradoxical motion of the right hemidiaphragm upon sniffing. Diaphragmatic paralysi s is not excluded. IMPRESSION: As Above.
== END | disposition home or self-care (01) ==
LOC: RADUSWWP 09:54
PROVIDERS: ATTEND Internal Medicine Critical Care Medicine
DX: J98.6 Disorders of diaphragm (principal)
CPT/HCPCS: 76000